=== PATIENT | male | born 1985 | race Caucasian/White ===

== ENCOUNTER 2023-02-15 09:37 | Emergency (ER) | payer MEDICAID ==
[~2023-02-15] VITALS: Ht 170.2 cm; Wt 83.9 kg
--- NOTE | 2023-02-15 10:27 | NUR ---
patient came in to the er c/o palpitations. On room air, breathing evenly and unlabored.. Connected to the monitor and pulse ox kept comfortable, will continue to monitor accordingly.
[2023-02-15 10:28] VITALS: BP 118/77; TEMP 98.2
--- NOTE | 2023-02-15 10:28 | NUR ---
Patient discharged to home in stable condition. Written and verbal after care instructions given. Patient verbalizes understanding of instruction.
== END 2023-02-15 10:28 | disposition home or self-care (01) ==
LOC: ER 09:43
DX: R00.2 Palpitations (principal); I10 Essential (primary) hypertension